=== PATIENT | male | born 1965 | race African-American/Black ===

== ENCOUNTER 2017-05-27 13:50 | Inpatient (IN) | payer MEDICAID ==
[~2017-05-27] VITALS: Ht 160 cm; Wt 73.7 kg
[2017-05-27] MEDS ORDERED: DEXTROSE 50% WATER 50ML SYRINGE IV ONE ×3 (14:21→18:45)
[2017-05-27] MEDS ORDERED: SODIUM CHLORIDE 0.9% 500 ML IV ONE (14:30)
[2017-05-27 15:43] LABS: *AMPHETAMINES SCREEN URINE NEGATIVE (NEGATIVE); *BARBITURATES SCREEN URINE NEGATIVE (NEGATIVE); *BENZODIAZEPINES SCREEN URINE NEGATIVE (NEGATIVE); *COCAINE SCREEN URINE PRESUMTIVE POSITIVE (NEGATIVE); CANNABINOID URINE SCREEN PRESUMTIVE POSITIVE (NEGATIVE); METHADONE URINE SCREEN NEGATIVE (NEGATIVE); OPIATES URINE SCREEN NEGATIVE (NEGATIVE); PHENCYCLIDINE URINE SCREEN NEGATIVE (NEGATIVE)
[2017-05-27 16:45] LABS: BASOPHILS % 0.6 % (0.0-2.0); EOSINOPHILS % 0.1 % (0.0-5.0); HEMATOCRIT. 41.5 % (42.0-52.0); HEMOGLOBIN. 13.2 g/dL (14.0-18.0); LYMPHOCYTES % 10.4 % (20.0-50.0); MEAN CORPUSCULAR HEMOGLOBIN 24.3 pg (28.0-32.0); MEAN CORPUSCULAR VOLUME 76.7 fL (80.0-94.0); MEAN PLATELET VOLUME 9.9 fl (7.4-10.4); MONOCYTES % 8.2 % (2.0-8.0); NEUTROPHILS % 80.7 % (40.0-76.0); PLATELET 198 x1000/uL (130-400); RED BLOOD CELL COUNT 5.41 mill/uL (4.7-6.1)
[2017-05-27] MEDS ORDERED: DEXT 5% WATER + KCL 20MEQ/L 1,000 ML IV ONE (18:45)
[2017-05-27 20:10] VITALS: BP 129/88
[2017-05-27] MEDS ORDERED: ONDANSETRON HCL 4MG/2ML VIAL IV PRN (20:30)
[2017-05-27] MEDS ORDERED: ACETAMINOPHEN 325MG TABLET PO PRN (20:30)
[2017-05-27] MEDS ORDERED: DEXTROSE 50% WATER 50ML SYRINGE IV PRN (20:30)
[2017-05-27] MEDS ORDERED: MAGNESIUM/ALUMINUM HYDROXIDE/SIMETHICONE 30ML UDC PO PRN (20:30)
[2017-05-27] MEDS: INSULIN LISPRO 100 UNITS/ML SUBCUT SCH (21:00)
[2017-05-27] MEDS: BLOOD SUGAR DIAGNOSTIC STRIP TEST SCH (21:19)
[2017-05-27] MEDS: DEXT 5%/0.45% NACL 1000ML 1,000 ML IV SCH (22:19)
[2017-05-28] VITALS: BP 102/71
[2017-05-28 04:00] VITALS: BP 114/72
[2017-05-28] MEDS: BLOOD SUGAR DIAGNOSTIC STRIP TEST SCH ×4 (05:35→21:10)
[2017-05-28] MEDS: DEXT 5%/0.45% NACL 1000ML 1,000 ML IV SCH (05:39)
[2017-05-28 08:00] VITALS: BP 126/69
[2017-05-28] MEDS: INSULIN LISPRO 100 UNITS/ML SUBCUT SCH ×4 (08:10→21:00)
[2017-05-28 11:58] VITALS: BP 92/52
[2017-05-28 16:00] VITALS: BP 113/72
[2017-05-28] MEDS ORDERED: THIAMINE HCL 100 MG in SODIUM CHLORIDE 0.9% 49 ML IV NR (18:30)
[2017-05-28 20:00] VITALS: BP 105/62
[2017-05-29] VITALS: BP 113/73
[2017-05-29 04:00] VITALS: BP 105/72
[2017-05-29] MEDS: BLOOD SUGAR DIAGNOSTIC STRIP TEST SCH ×2 (07:40→12:34)
[2017-05-29 07:58] VITALS: BP 115/72
[2017-05-29] MEDS: INSULIN LISPRO 100 UNITS/ML SUBCUT SCH ×2 (08:10→12:34)
[2017-05-29 12:00] VITALS: BP 107/68
[2017-05-29 15:07] VITALS: BP 107/68
== END 2017-05-29 16:05 | disposition home or self-care (01) | DRG 52 ==
LOC: ER 17:58 → 7WST 18:23 → ENRESERV 18:30
PROVIDERS: ADMIT Internal Medicine; ATTEND Internal Medicine
DX: G92 Toxic encephalopathy (principal); E11.649 Type 2 diabetes mellitus with hypoglycemia without coma; I10 Essential (primary) hypertension; Z59.0 Homelessness
CPT/HCPCS: 36415; 70450; 71010; 80048; 80305; 82962; 83036; 85025; 96361; 96374; 96376; 99285; G0482; J3411; J3490; J7040; J7050; J7060